=== PATIENT | female | born 1945 | race Caucasian/White ===

== ENCOUNTER 2021-12-10 19:41 | Emergency (ER) | payer MEDICARE ==
[~2021-12-10] VITALS: Ht 162.6 cm; Wt 79.4 kg
[2021-12-11 02:19] VITALS: BP 145/53
== END 2021-12-11 02:20 | disposition home or self-care (01) ==
LOC: ER 19:46
DX: S00.83XA Contusion of other part of head, initial encounter (principal); W22.01XA Walked into wall, initial encounter; Y92.128 Other place in nursing home as the place of occurrence of the external cause; I10 Essential (primary) hypertension; E11.9 Type 2 diabetes mellitus without complications; E78.5 Hyperlipidemia, unspecified; K21.9 Gastro-esophageal reflux disease without esophagitis; I48.91 Unspecified atrial fibrillation; M81.8 Other osteoporosis without current pathological fracture; F32.A Depression, unspecified; G47.00 Insomnia, unspecified
CPT/HCPCS: 36415; 70450; 72125; 82948; 99284